=== PATIENT | male | born 1960 | race Caucasian/White ===

== ENCOUNTER 2018-04-13 11:08 | Emergency (ER) | payer BC ==
[~2018-04-13] VITALS: Ht 188 cm; Wt 115.7 kg
[2018-04-13] MEDS ORDERED: ASPI-605 PO (11:25)
[2018-04-13] MEDS ORDERED: ATOR20TA PO (11:25)
[2018-04-13] MEDS ORDERED: METF-442 PO (11:25)
[2018-04-13] MEDS ORDERED: CLOP75TA15 PO (11:25)
[2018-04-13] MEDS ORDERED: LISI-603 PO (11:25)
[2018-04-13] MEDS ORDERED: PANT40TA4 PO (11:25)
[2018-04-13] MEDS ORDERED: MORPHINE SULFATE 4 MG/1 ML DISP.SYRIN IM ONE (11:30)
[2018-04-13] MEDS ORDERED: MORPHINE SULFATE 4 MG/1 ML DISP.SYRIN ONE (11:30)
[2018-04-13] MEDS ORDERED: CLINDAMYCIN HCL 300 MG CAPSULE ONE (11:59)
[2018-04-13] MEDS ORDERED: CLINDAMYCIN HCL 150 MG CAPSULE PO ONE (12:00)
--- NOTE | 2018-04-13 12:01 | NUR ---
DR WIGGINS AT BEDSIDE FOR WOUND CARE. PAIN MEDICINE GIVEN ORDERED. STERILE DRESSING APPLIED. DC, RX AND F/U INSTRUCTIONS GIVEN AND EXPLAINED TO PATIENT WHO STATES HE UNDERSTANDS ALL INSTRUCTIONS.
--- NOTE | 2018-04-13 12:04 | NUR ---
PATIENT STATES PAIN HAS DIMINISHED
== END 2018-04-13 12:05 | disposition home or self-care (01) ==
LOC: ER 11:08
DX: L02.215 Cutaneous abscess of perineum (principal); K21.9 Gastro-esophageal reflux disease without esophagitis; E11.9 Type 2 diabetes mellitus without complications; Z88.0 Allergy status to penicillin; Z79.82 Long term (current) use of aspirin; Z79.01 Long term (current) use of anticoagulants; Z79.899 Other long term (current) drug therapy
CPT/HCPCS: 10060; 96372; 99283; J2270; A4663

== ENCOUNTER 2018-04-16 11:09 | Emergency (ER) | payer BC ==
[~2018-04-16] VITALS: Ht 177.8 cm; Wt 115.7 kg
[~2018-04-16 11:09] MED LIST: ASPI-605 PO; ATOR20TA PO; CLOP75TA15 PO; LISI-603 PO; METF-442 PO; PANT40TA4 PO
--- NOTE | 2018-04-16 11:27 | NUR ---
repacked the wound. Patient tolerated the repacking well. Good healing incisional wound seen. Patient discharged to home in stable conditon. Written and verbal after care instructions given to patient. Patient verbalizes understanding of instructions.
== END 2018-04-16 11:39 | disposition home or self-care (01) ==
LOC: ER 11:09
DX: L02.215 Cutaneous abscess of perineum (principal); K21.9 Gastro-esophageal reflux disease without esophagitis; E11.9 Type 2 diabetes mellitus without complications; Z88.0 Allergy status to penicillin; Z79.01 Long term (current) use of anticoagulants; Z79.82 Long term (current) use of aspirin; Z79.899 Other long term (current) drug therapy
CPT/HCPCS: A4663

== ENCOUNTER 2018-04-19 13:44 | Emergency (ER) | payer BC ==
[~2018-04-19] VITALS: Ht 177.8 cm; Wt 115.7 kg
--- NOTE | 2018-04-19 13:59 | NUR ---
Patient discharged to home in stable conditon. Written and verbal after care instructions given. Patient verbalizes understanding of instructions.
== END 2018-04-19 14:01 | disposition home or self-care (01) ==
LOC: ER 13:47
DX: Z48.01 Encounter for change or removal of surgical wound dressing (principal); L02.215 Cutaneous abscess of perineum; K21.9 Gastro-esophageal reflux disease without esophagitis; E11.9 Type 2 diabetes mellitus without complications; Z88.0 Allergy status to penicillin; Z79.82 Long term (current) use of aspirin; Z79.01 Long term (current) use of anticoagulants; Z79.899 Other long term (current) drug therapy
CPT/HCPCS: A4663